=== PATIENT | female | born 1985 | race Caucasian/White ===

== ENCOUNTER 2016-12-28 17:47 | Emergency (ER) | payer OTHER ==
[~2016-12-28] VITALS: Ht 154.9 cm; Wt 87.1 kg
[~2016-12-28 17:47] MED LIST: AMOXICILLIN875 M1 PO; HYDRALAZINE HCL50 M1 PO; IBUPROFEN600 M1 PO
--- NOTE | 2016-12-28 18:24 | ED GENERAL ADULT ---
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 PT SEEN PMD THIS AM DR NAVARRO, AND SAID GO TO ED IF SHE DOESN'T FEEL BETTER. PT REPORTS NAUSEA, VOMITING X ONE TODAY WITH EPIGASTRIC PAIN. PT REPORTS SHAKING, FEEELING WEAK, TIRED, SICK. Triage Nurses Notes Reviewed? yes Onset: Abrupt Duration: hour(s):, constant, continues in ED Timing: recent history Injury Environment: home No Modifying Factors: none : No Patient currently breastfeeds: No HPI: 31-year-old female comes into emergency room with complaints of her blood pressure being high, fever, epigastric pain. Patient reports that this is been going on since this morning. Patient saw her primary care doctor who told her to go to the hospital she had any worsening of symptoms. She denies any vomiting. Patient had child 4 months ago and reports that she's been having issues since the last delivery. Denies any preeclampsia or complications during the themselves. Patient was admitted here back in August for syncopal episodes. Patient reports she has some associated chest pain this morning. Nothing seems to make the symptoms better or worse. Denies any other associated symptoms at this time. (APURVA WELCH) Past History Travel History Traveled to [place] past 21 day No Medical History Any Pertinent Medical History? see below for history Neurological: migraine EENT: NONE Cardiovascular: NONE Respiratory: NONE Gastrointestinal: NONE Hepatic: NONE Renal: NONE Musculoskeletal: NONE Psychiatric: NONE Endocrine: NONE Blood Disorders: anemia Cancer(s): NONE DRIER TENDER/Reproductive: NONE, preeeclampsia History of MRSA: No History of VRE: No History of CDIFF: No Surgical History Surgical History: non-contributory Psychosocial History Services at Home None What is your primary language Zimbabwean Tobacco Use: Never used Family History Hx Contributory? No (APURVA WELCH) Review of Systems Review of Systems Constitutional: Reports: see HPI. EENTM: Reports: see HPI. Respiratory: Reports: no symptoms. Cardiovascular: Reports: see HPI. GI: Reports: no symptoms. Genitourinary: Reports: no symptoms. Musculoskeletal: Reports: no symptoms. Skin: Reports: no symptoms. Neurological/Psychological: Reports: no symptoms. Hematologic/Endocrine: Reports: no symptoms. Immunologic/Allergic: Reports: no symptoms. All Other Systems: Reviewed and Negative (APURVA WELCH) Physical Exam Physical Exam General Appearance: well developed/nourished, no apparent distress, alert Head: atraumatic, normal appearance Eyes: Bilateral: normal appearance, EOMI. Ears, Nose, Throat: normal pharynx, normal ENT inspection, hearing grossly normal Neck: normal inspection Respiratory: normal breath sounds, no respiratory distress Cardiovascular: regular rate/rhythm, tachycardia Gastrointestinal: soft, tenderness (EPIGASTRIC) Back: normal inspection Extremities: normal inspection, normal range of motion, no edema Neurologic/Psych: awake, alert, oriented x 3, normal gait, normal mood/affect Skin: intact, normal color Core Measures ACS in differential dx? Yes CVA/TIA Diagnosis: No Severe Sepsis Present: No Septic Shock Present: No (APURVA WELCH) Progress Differential Diagnoses I considered the following diagnoses in my evaluation of the patient: Sepsis, pneumonia, UTI, cholecystitis, cholangitis, pancreatitis, influenza, strep, Plan of Care: Orders Procedure Date/time Status Add-on Test (ER Only) 12/28 2140 Active Telemetry/Radio Installer 12/28 2016 Active Add-on Test (ER Only) 12/28 1926 Active RAPID VIRAL INFLUENZA A 12/28 182 Complete Add-on Test (ER Only) 12/28 1822 Active THYROID STIMULATING HORMONE 12/28 1820 Complete TROPONIN LEVEL 12/28 1820 Complete HUMAN BETA HCG SCREEN 12/28 1820 Complete FREE T4 12/28 1820 Complete D-DIMER 12/28 1820 Complete URINE 12/28 1801 Complete URINALYSIS 12/28 1801 Complete LIPASE 12/28 1800 Complete LACTIC ACID 12/28 1800 Complete COMPREHENSIVE METABOLIC PANEL 12/28 1800 Complete CBC WITHOUT DIFFERENTIAL 12/28 1800 Complete AMYLASE 12/28 1800 Complete EKG 12/28 1749 Active Laboratory Tests 12/28/16 2100: Lactic Acid Cancelled 12/28/16 2012: Urine Color STRAW, Urine Clarity CLEAR, Urine pH 6.5, Ur Specific [place] 1.010, Urine Protein NEG, Urine Ketones NEG, Urine Nitrite NEG, Urine Bilirubin NEG, Urine Urobilinogen 0.2, Ur Leukocyte Esterase TRACE H, Ur Microscopic SEDIMENT EXAMINED, Urine RBC RARE, Urine WBC RARE, Ur Epithelial Cells FEW, Urine Bacteria RARE H, Urine Mucus RARE, Urine Hemoglobin NEG, Urine Glucose NEG, Urine Test NEGATIVE 12/28/16 1820: Anion Gap 12, Estimated GFR > 60, BUN/Creatinine Ratio 12.9, Glucose 100 H, Lactic Acid 1.0, Calcium 9.3, Total Bilirubin 0.6, AST 29, ALT 37, Alkaline Phosphatase 73, Troponin I < 0.01, Total Protein 7.5, Albumin 4.3, Globulin 3.2, Albumin/Globulin Ratio 1.3, Amylase 47, Lipase 80, TSH 0.358, Free T4 0.84, Total Beta HCG NEGATIVE, D-Dimer 467 H, CBC w Diff NO MAN DIFF REQ, RBC 4.84, MCV 83.9, MCH 28.0, RDW 13.7, MPV 9.1, Gran % 79.3 H, Lymphocytes % 14.3 L, Monocytes % 5.9, Eosinophils % 0.2, Basophils % 0.3, Absolute Granulocytes 6.5, Absolute Lymphocytes 1.2, Absolute Monocytes 0.5, Absolute Eosinophils 0, Absolute Basophils 0, PUBS MCHC 33.4 Microbiology 12/28 1913 NASOPHARYN: Influenza Virus A & B Rapid Smear - COMP Diagnostic Imaging: Viewed by Me: CT Scan. Discussed w/RAD: CT Scan. Radiology Impression: SERVICE DATE: 12/28/16 EXAM TYPE: CAT - CTA CHEST- PULMONARY EMBOLISM EXAMINATION: CT ANGIOGRAM OF THE CHEST WITH AND WITHOUT CONTRAST (CT PULMONARY ANGIOGRAM FOR PE) CLINICAL INFORMATION: Chest pain and tachycardia. Evaluate for pulmonary embolism. COMPARISON: Chest radiograph 08/16. TECHNIQUE: Prior to contrast administration, noncontrast localization images were obtained. Subsequently, multidetector volumetric imaging was performed from the thoracic inlet to below the diaphragms following the administration of 95 mL Optiray 350 intravenous contrast. No contrast reaction reported Sagittal, coronal, and MIP oblique sagittal reformatted images were obtained on the CT workstation, uploaded to PACS, and reviewed. Total exam dose- length product 429.61 mGy-cm FINDINGS: The timing of the contrast injection provides adequate opacification of the pulmonary arterial vasculature. There is no central luminal filling defect to suggest the presence of an acute pulmonary embolism. Lungs are well-expanded. There is no focal consolidative disease, pleural effusion, or pneumothorax. The heart is normal and there is no pericardial effusion. The aortic arch apex as well as the origins of the major aortic branches are widely patent. Limited visualization of the thoracic outlet including the thyroid gland are unremarkable. There are no pathologically enlarged mediastinal or axillary lymph nodes. The chest wall is intact. Limited visualization of the intra-abdominal compartment reveals no abnormal finding. There is no acute osseous finding. Specifically no evidence of acute fracture or subluxation. IMPRESSION: Unremarkable examination. There is no evidence of acute pulmonary embolism. No consolidative disease or effusion. VTE: negative DICTATED BY: LYRIC STERLING,RESHMA Angel DATE/TIME DICTATED:12/28/162122 MANAGER OF APPLICATION DEVELOPMENT: TIFFANI DATE/TIME TRANSCRIBED:12/28/162122 Initial ED EKG: normal intervals, normal p-waves, normal QRS complex, normal sinus rhythm, rate (120) (APURVA WELCH) Departure Departure Disposition: HOME OR SELF CARE Condition: Stable Clinical Impression Primary Impression: Atypical chest pain Secondary Impressions: Abdominal pain Referrals: EMERSON NAVARRO MD (PCP/Family) Additional Instructions: Follow-up with your primary care doctor. Return to the emergency room immediately if any other concerns worsening symptoms. Cause of her symptoms are unclear at this time. Take ibuprofen 800 mg 3 times a day. Please go over all results of today's visit with your primary care doctor. Contact your primary care doctor to let them know you were here in the emergency room. There may be nonspecific findings which may not be related to your visit today here in the emergency room but may require further evaluation and chronic monitoring by your primary care doctor. If you had a laceration today the chance of foreign body always remains. You should follow-up with your primary care doctor for recheck in 3-5 days for a wound check. If you had an x-ray done there is a chance that a fracture could have been missed on initial read and you should follow-up with your primary care doctor for repeat x-rays if symptoms persist. If your blood pressure was elevated here in the emergency room please have rechecked by her primary care doctor within the next 48 hours by your primary care doctor. If you were prescribed a narcotic here in the emergency room or any type of controlled substances you're not allowed to drive while taking this medication or operate any type of heavy machinery. Narcotics can make you feel lightheaded dizziness nausea and can cause constipation. You may need to peanut picker a stool softener. Thank you for choosing [facility] emergency room. Please return to the emergency room immediately if you have any other concerns worsening of symptoms. Departure Forms: Customer Survey General Discharge Information Comments 12/28/2016 11:20:01 PM Patient clinically looks well, Patient is nontoxic-appearing, AND Patient is in no apparent distress upon reevaluation. Patient had a low-grade fever which was likely higher than tympanic membrane was picking up. After IV hydration and IV Tylenol symptoms drastically improved and heart rate improved. Patient was sent for CT scan to rule out pulmonary embolism but the CAT scan showed no evidence of pulmonary embolism. As stated before patient reevaluated multiple times. She was sleeping comfortably in the room in no apparent distress. Symptoms are likely viral. There is no focal signs of infection at all. Patient can follow- up with her primary care doctor. Case discussed with Dr. Grialdo. Patient will return immediately if any other concerns worsening symptoms. Apparently upon discharge patient was complaining of some blurry vision. I went back in to reevaluate her but she had left on her own accord because she did not want to stay any longer and so that she was well enough to go home. Patient has been instructed to follow-up with her primary care doctor tomorrow. Return if any other concerns. Abdominal exam is not impressive with no focal guarding. Negative Abernathy sign. Upon wet read of CT scan there did not appear to be any type of gallstones seen on the CAT scan. Gallbladder was slightly distended but patient's primary complaint was more the heart rate and chest symptoms. The abdominal pain issues and been going on for many months. (APURVA WELCH) PA/DIRECTOR STERILE PROCESSING Co-Sign Statement Statement: ED Attending supervision documentation- [] I saw and evaluated the patient. I have also reviewed all the pertinent lab results and diagnostic results. I agree with the findings and the plan of care as documented in the PA's/DIRECTOR STERILE PROCESSING's documentation. [x] I have reviewed the ED Record and agree with the PA's/DIRECTOR STERILE PROCESSING's documentation. [] Additions or exceptions (if any) to the PAs/DIRECTOR STERILE PROCESSING's note and plan are summarized below: [] (YANI STERLING,RAFY Quintana) Critical Care Note Critical Care Note Critical Care Time: non-applicable (RAMAKRISHNA FIGUEROA,APURVA)
[2016-12-28 18:52] LABS: ABSOLUTE BASOPHIL COUNT 0 /CUMM (0.0-0.2); ABSOLUTE EOSINOPHIL COUNT 0 /CUMM (0.0-0.7); ABSOLUTE GRANULOCYTE CT 6.5 /CUMM (1.4-6.5); ABSOLUTE LYMPH COUNT 1.2 /CUMM (1.2-3.4); ABSOLUTE MONOCYTE COUNT 0.5 /CUMM (0.10-0.60); BASOPHIL % 0.3 % (0.0-2.0); EOSINOPHIL % 0.2 % (0-5); GRANULOCYTE % 79.3 % (42.2-75.2); HEMATOCRIT 40.7 % (37-47); MEAN CORPUSCULAR HGB CONC 33.4 G/DL (33.0-37.0); MEAN CORPUSCULAR VOLUME 83.9 FL (81.0-99.0); MEAN PLATELET VOLUME 9.1 FL (7.4-10.4); PLATELET COUNT 193 /CUMM (130-400); RBC DISTRIBUTION WIDTH 13.7 % (11.5-14.5); RED BLOOD CELL CT 4.84 /CUMM (4.20-5.40); WHITE BLOOD CELL COUNT 8.2 /CUMM (4.8-10.8)
--- NOTE | 2016-12-28 21:32 | CT SCAN REPORT ---
EXAMINATION: CT ANGIOGRAM OF THE CHEST WITH AND WITHOUT CONTRAST (CT PULMONARY ANGIOGRAM FOR PE) CLINICAL INFORMATION: Chest pain and tachycardia. Evaluate for pulmonary embolism. COMPARISON: Chest radiograph 08/16/2016. TECHNIQUE: Prior to contrast administration, noncontrast localization images were obtained. Subsequently, multidetector volumetric imaging was performed from the thoracic inlet to below the diaphragms following the administration of 95 mL Optiray 350 intravenous contrast. No contrast reaction reported Sagittal, coronal, and MIP oblique sagittal reformatted images were obtained on the CT workstation, uploaded to PACS, and reviewed. Total exam dose-length product 429.61 mGy-cm FINDINGS: The timing of the contrast injection provides adequate opacification of the pulmonary arterial vasculature. There is no central luminal filling defect to suggest the presence of an acute pulmonary embolism. Lungs are well-expanded. There is no focal consolidative disease, pleural effusion, or pneumothorax. The heart is normal and there is no pericardial effusion. The aortic arch apex as well as the origins of the major aortic branches are widely patent. Limited visualization of the thoracic outlet including the thyroid gland are unremarkable. There are no pathologically enlarged mediastinal or axillary lymph nodes. The chest wall is intact. Limited visualization of the intra-abdominal compartment reveals no abnormal finding. There is no acute osseous finding. Specifically no evidence of acute fracture or subluxation. IMPRESSION: Unremarkable examination. There is no evidence of acute pulmonary embolism. No consolidative disease or effusion. VTE: negative
[2016-12-28 22:48] VITALS: BP 142/70
== END 2016-12-28 23:00 ==
LOC: ERH 17:47
PROVIDERS: Physician Assistant Medical
DX: R07.89 Other chest pain (principal); R10.13 Epigastric pain; R03.0 Elevated blood-pressure reading, without diagnosis of hypertension
CPT/HCPCS: 81001; 81025; 87804; 87804-59; 93005; 93010; 96374; J0131